=== PATIENT | female | born 2000 | race Hispanic/Latino ===

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

== ENCOUNTER 2022-04-24 21:27 | Emergency (ER) | payer SELFPAY ==
[2022-04-24 22:11] LABS: Urine Blood Trace-lysed (Negative); Urine Glucose Negative (Negative); Urine Protein Negative (Negative); Urine Specific Gravity 1.025 (1.005-1.030)
[2022-04-24 22:27] LABS: Urine Specific Gravity/Preg 1.025 (1.005-1.030)
[2022-04-24] MEDS ORDERED: KETOROLAC 30 MG/ML INJ ONE (22:38)
[2022-04-24] MEDS ORDERED: NA CHLORIDE 0.9% 1,000 ML ONE (22:38)
[2022-04-24] MEDS ORDERED: ONDANSETRON 4 MG/2 ML VIAL ONE (22:38)
[2022-04-24 22:52] LABS: Absolute Lymphocytes (CBC) 2.4 K/uL (0.7-4.9); Hematocrit 41.3 % (36.0-45.0); Lymphocytes % 22.6 % (15.3-44.8); MCV 89.4 fL (80-100); MPV 7.9 fL (7.6-11.3); RBC Red Blood Cell Count 4.62 M/uL (3.86-4.86)
[2022-04-24 22:56] LABS: Urine Bacteria <20 /HPF (<20); Urine Mucus 4+ /HPF (None Seen)
[2022-04-24 23:10] LABS: Albumin 3.8 g/dL (3.4-5.0); Bilirubin Total 0.5 mg/dL (0.2-1.0); Potassium 3.4 mmol/L (3.5-5.1); Protein, Total 7.6 g/dL (6.4-8.2)
[2022-04-24] MEDS ORDERED: CEFTRIAXONE 1000 MG/VIAL ONE (23:18)
[2022-04-25] MEDS ORDERED: DIPHENHYDRAMINE 50 MG/ML VIAL ONE (01:01)
--- NOTE | 2022-04-25 01:25 | ER ---
Nurse's Notes [facility] Name: Joann Ellis Age: 22 yrs Sex: Female : 2000 Arrival Date: 04/24/2022 Time: 21:31 Bed 6 Private MD: Diagnosis: UTI/ Urinary tract infection, site not specified;Allergic reaction;Lower abdominal pain Presentation: 04/24 21:37 Chief complaint: Patient states: I have been having lower ABD pain and lower back pain aa9 throughout the day, I felt nausea too. Coronavirus screen: Vaccine status: Patient reports being unvaccinated. Ebola Screen: No symptoms or risks identified at this time. Initial Sepsis Screen: Does the patient meet any 2 criteria? No. Patient's initial sepsis screen is negative. Does the patient have a suspected source of infection? No. Patient's initial sepsis screen is negative. Risk Assessment: Do you want to hurt yourself or someone else? Patient reports no desire to harm self or others. Onset of symptoms was April 24, 2022. 21:37 Method Of Arrival: Ambulatory aa9 21:37 Acuity: POLINA 3 aa9 Triage Assessment: 21:41 General: Appears comfortable, Behavior is calm, cooperative, appropriate for age. Pain: aa9 Complains of pain in right lower quadrant and left lower quadrant Pain radiates to left low back and right low back Pain currently is 9 out of 10 on a pain scale. EENT: No signs and/or symptoms were reported regarding the EENT system. Neuro: Level of Consciousness is awake, alert, obeys commands, Oriented to person, place, time, situation. Cardiovascular: Respiratory: Airway is patent Respiratory effort is even, unlabored. GI: Reports diarrhea, nausea, Patient currently denies vomiting. : No signs and/or symptoms were reported regarding the genitourinary system. Denies burning with urination. Derm: Skin is intact, is healthy with good turgor. Musculoskeletal: No signs and/or symptoms reported regarding the musculoskeletal system. 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 - Social history:: Smoking status: Patient reports the use of cigarette tobacco products. Screenin:43 Abuse screen: Denies threats or abuse. Denies injuries from another. Nutritional aa9 screening: Has had N/V for 3 or more days. Tuberculosis screening: No symptoms or risk factors identified. 22:12 [facility] ED Fall Risk Assessment (Adult) Score/Fall Risk Level 0 - 2 = Low Risk. as6 Assessment: 22:11 General: Appears in no apparent distress. Behavior is calm, cooperative. Pain: as6 Complains of pain in left lower quadrant and right lower quadrant Pain radiates to right low back and left low back. Neuro: Level of Consciousness is awake, alert, obeys commands, Oriented to person, place, time, situation. Cardiovascular: Capillary refill < 3 seconds Patient's skin is warm and dry. Respiratory: Respiratory effort is even, unlabored, Respiratory pattern is regular, symmetrical. GI: Reports lower abdominal pain, nausea. 23:41 Reassessment: Patient appears in no apparent distress at this time. Patient and/or as6 family updated on plan of care and expected duration. Pain level reassessed. Patient is alert, oriented x 3, equal unlabored respirations, skin warm/dry/pink. Patient states symptoms have improved. 04/25 01:03 Reassessment: Patient is alert, oriented x 3, equal unlabored respirations, skin bb warm/dry/pink. pt reports she is having an allergic reaction her lips are numb her eye is swollen and she has a rash Dr Kerr notified new orders received pt medicated see JUN. Vital Signs: 04/24 21:37 BP 146 / 98; Pulse 99; Resp 21 S; Temp 98.8; Pulse Ox 97% on R/A; Weight 77.11 kg (R); aa9 Height 5 ft. 3 in. (160.02 cm) (R); Pain 9/10; 22:50 BP 126 / 80; Pulse 95; Resp 18 S; Pulse Ox 99% on R/A; as6 23:41 BP 117 / 70; Pulse 85; Resp 16 S; Pulse Ox 100% on R/A; as6 04/25 01:22 BP 132 / 85; Pulse 88; Resp 17 S; Pulse Ox 99% on R/A; as6 04/24 21:37 Body Mass Index 30.11 (77.11 kg, 160.02 cm) aa9 ED Course: 04/24 21:31 Patient arrived in ED. ja2 21:33 Gemini Kerr MD is Attending Physician. sd2 21:39 Triage completed. aa9 21:43 Arm band placed on. aa9 21:44 Renard Kinsey, JUAN F is Primary Nurse. as6 22:12 Placed in gown. Bed in low position. Call light in reach. Side rails up X 1. as6 22:40 Inserted saline lock: 20 gauge in right antecubital area, using aseptic technique. as6 Blood collected. 22:49 Urine Microscopic Only Sent. as6 22:49 Lipase Sent. as6 22:49 CMP Sent. as6 22:49 CBC with Diff Sent. 04/25 00:48 US Pelvis Complete In Process Unspecified. EDMS 01:33 No provider procedures requiring assistance completed. IV discontinued, intact, as6 bleeding controlled, No redness/swelling at site. Pressure dressing applied. Administered Medications: 04/24 22:40 Drug: Ketorolac 15 mg Route: IVP; Site: right antecubital; 04/25 01:34 Follow up: Response: No adverse reaction as6 04/24 22:40 Drug: Zofran (Ondansetron) 4 mg Route: IVP; Site: right antecubital; as6 23:40 Follow up: Response: No adverse reaction; Marked relief of symptoms; Nausea is decreasedpf1 22:40 Drug: NS 0.9% 1000 ml Route: IV; Rate: 1 bolus; Site: right antecubital; 04/25 01:34 Follow up: Response: No adverse reaction; IV Status: Completed infusion; IV Intake: as6 1000ml 04/24 23:18 Drug: Rocephin (cefTRIAXone) 1 grams Route: IV; Rate: bolus; Site: right antecubital; 04/25 01:33 Follow up: Response: Adverse reaction, Physician notified; IV Status: Completed as6 infusion; IV Intake: 10ml 01:02 Drug: Benadryl (diphenhydrAMINE) 25 mg Route: IVP; Site: right antecubital; bb 01:29 Follow up: Response: No adverse reaction; Marked relief of symptoms pf1 01:28 Drug: predniSONE 60 mg Route: PO; pf1 01:33 Follow up: Response: No adverse reaction as6 Medication: 04/24 23:40 VIS not applicable for this client. as6 Intake: 04/25 01:33 IV: 10ml; Total: 10ml. as6 01:34 IV: 1000ml; Total: 1010ml. as6 Outcome: 01:25 Discharge ordered by . sd2 01:34 Discharged to home ambulatory, with family. as6 01:34 Condition: stable 01:34 Discharge instructions given to patient, family, Instructed on discharge instructions, follow up and referral plans. medication usage, Demonstrated understanding of instructions, follow-up care, medications, Prescriptions given X 2. 01:35 Patient left the ED. as6 Signatures: Dispatcher [employer] EDMS Carole Clark, RN RN Gabriella Rousseau Ashby, RN RN as6 Gemini Kerr MD MD sd2 Avalos, Aylin, RN RN kevin9 Khushi cullen RN RN pf1 Corrections: (The following items were deleted from the chart) 04/24 21:41 21:39 Home Meds: zytec; aaSravanthi aa9
--- NOTE | 2022-04-25 01:25 | EDPHYS ---
Physician Documentation [facility] Name: Joann Ellis Age: 22 yrs Sex: Female : 2000 Arrival Date: 04/24/2022 Time: 21:31 Bed 6 Private MD: ED Physician Gemini Kerr HPI: 04/24 22:30 This 22 yrs old Female presents to ER via Ambulatory with complaints of Flank sd2 Pain, Abdominal Pain, Back Pain, Nausea, Diarrhea. 22:30 22-year-old female presents with chief complaint of lower abdominal pain that has been sd2 present throughout the day today. She also endorses associated nausea and one episode of diarrhea. She denies any new food exposures or recent sick contacts. She denies any associated fever, vomiting or urinary symptoms. Last menstrual period was 2 weeks ago. She did take Tylenol at home with no relief.. 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 - Social history:: Smoking status: Patient reports the use of cigarette tobacco products. ROS: 22:30 Constitutional: Negative for fever, chills, and weight loss, Eyes: Negative for injury, sd2 pain, redness, and discharge, Cardiovascular: Negative for chest pain, palpitations, and edema, Respiratory: Negative for shortness of breath, cough, wheezing. 22:30 : Negative for dysuria, urinary frequency, hesitancy, urgency and hematuria. MS/Extremity: Negative for injury and deformity, Skin: Negative for injury, rash, and discoloration, Neuro: Negative for headache, numbness and tingling. 22:30 Abdomen/GI: Positive for abdominal pain, nausea, diarrhea, Negative for vomiting. Exam: 22:30 Constitutional: This is a well developed, well nourished patient who is awake, alert, sd2 and in no acute distress. Head/Face: Normocephalic, atraumatic. Eyes: EOMI, normal conjunctiva bilaterally Chest/axilla: Normal chest wall appearance and motion. Nontender with no deformity. Cardiovascular: Regular rate and rhythm with a normal S1 and S2. No gallops, murmurs, or rubs. 2+ distal pulses. Respiratory: Lungs have equal breath sounds bilaterally, clear to auscultation and percussion. No rales, rhonchi or wheezes noted. No increased work of breathing, no retractions or nasal flaring. Abdomen/GI: Soft, ND, lower abdominal TTP without rebound or guarding Skin: Warm, dry with normal turgor. Normal color with no rashes, no lesions, and no evidence of cellulitis. MS/ Extremity: Pulses equal, no cyanosis. Neurovascular intact. Full, normal range of motion. Ambulatory without difficulty. Psych: Awake, alert, with orientation to person, place and time. Behavior, mood, and affect are within normal limits. Vital Signs: 21:37 BP 146 / 98; Pulse 99; Resp 21 S; Temp 98.8; Pulse Ox 97% on R/A; Weight 77.11 kg (R); aa9 Height 5 ft. 3 in. (160.02 cm) (R); Pain 9/10; 22:50 BP 126 / 80; Pulse 95; Resp 18 S; Pulse Ox 99% on R/A; as6 23:41 BP 117 / 70; Pulse 85; Resp 16 S; Pulse Ox 100% on R/A; as6 04/25 01:22 BP 132 / 85; Pulse 88; Resp 17 S; Pulse Ox 99% on R/A; as6 04/24 21:37 Body Mass Index 30.11 (77.11 kg, 160.02 cm) aa9 MDM: 04/24 22:00 Patient medically screened. sd2 22:30 Differential diagnosis: Gastritis, cholecystitis, pancreatitis, SBO, diverticulitis, sd2 kidney stone, appendicitis, UTI, dehydration, electrolyte abnormality among others. Data reviewed: vital signs, nurses notes. 04/25 01:22 Data reviewed: lab test result(s), radiologic studies. Counseling: I had a detailed sd2 discussion with the patient and/or guardian regarding: the historical points, exam findings, and any diagnostic results supporting the discharge/admit diagnosis, lab results, radiology results, the need for outpatient follow up, to return to the emergency department if symptoms worsen or persist or if there are any questions or concerns that arise at home. ED course: Labs and imaging reviewed. Consistent with UTI. US pelvis with no acute abnormalities and pain improved with Toradol. Suspect cystitis. No flank pain at this time. Pt given Rocephin ER but began to have an allergic reaction and was stopped and given Benadryl and Prednisone with improvement. Will place on Macrobid outpatient for treatment. Pt comfortable with plan for discharge and outpatient follow up. Verbalizes understanding of strict return precautions. . 04/24 22:11 Order name: Urine Dipstick-Ancillary; Complete Time: 22:12 EDMS 04/24 22:14 Order name: Urine --Ancillary (enter results); Complete Time: 22:28 wm 04/24 22:29 Order name: CBC with Diff; Complete Time: 23:07 sd2 04/24 22:29 Order name: CMP 2 04/24 22:29 Order name: Lipase sd2 04/24 22:29 Order name: Urine Microscopic Only; Complete Time: 23:07 sd2 04/24 22:29 Order name: US Pelvis Complete 04/24 23:04 Order name: Urine Culture EDMS Administered Medications: 04/24 22:40 Drug: Ketorolac 15 mg Route: IVP; Site: right antecubital; 04/25 01:34 Follow up: Response: No adverse reaction 04/24 22:40 Drug: Zofran (Ondansetron) 4 mg Route: IVP; Site: right antecubital; as6 23:40 Follow up: Response: No adverse reaction; Marked relief of symptoms; Nausea is decreasedpf1 22:40 Drug: NS 0.9% 1000 ml Route: IV; Rate: 1 bolus; Site: right antecubital; 04/25 01:34 Follow up: Response: No adverse reaction; IV Status: Completed infusion; IV Intake: as6 1000ml 04/24 23:18 Drug: Rocephin (cefTRIAXone) 1 grams Route: IV; Rate: bolus; Site: right antecubital; 04/25 01:33 Follow up: Response: Adverse reaction, Physician notified; IV Status: Completed as6 infusion; IV Intake: 10ml 01:02 Drug: Benadryl (diphenhydrAMINE) 25 mg Route: IVP; Site: right antecubital; bb 01:29 Follow up: Response: No adverse reaction; Marked relief of symptoms pf1 01:28 Drug: predniSONE 60 mg Route: PO; pf1 01:33 Follow up: Response: No adverse reaction as6 Disposition Summary: 04/25/22 01:25 Discharge Ordered Location: Home sd2 Problem: new sd2 Symptoms: have improved sd2 Condition: Stable sd2 Diagnosis - UTI/ Urinary tract infection, site not specified sd2 - Allergic reaction sd2 - Lower abdominal pain sd2 Followup: sd2 - With: Private Physician - When: 2 - 3 days - Reason: Recheck today's complaints, Continuance of care, Re-evaluation by your physician Discharge Instructions: - Discharge Summary Sheet sd2 - Drug Allergy sd2 - Urinary Tract Infection, Adult sd2 Forms: - Medication Reconciliation Form sd2 - Thank You Letter sd2 - Antibiotic Education sd2 - Prescription Opioid Use sd2 Prescriptions: - Macrobid 100 mg Oral Capsule - take 1 capsule by ORAL route every 12 hours for 10 days; 20 capsule; Refills: sd2 0, Product Selection Permitted - Prednisone 20 mg Oral Tablet - take 2 tablets by ORAL route once daily for 5 days; 10 tablet; Refills: 0, sd2 Product Selection Permitted Signatures: Dispatcher [employer] Carole Yoder RN RN bb Renard Kinsey RN RN as6 Dunlop, Stephanie, MD MD sd2 Denise Watson RN RN aa9 Khushi cullen RN RN pf1 Corrections: (The following items were deleted from the chart) 04/24 21:41 21:39 Home Meds: lyssa; jerrod aa9
[2022-04-25] MEDS ORDERED: predniSONE 20 MG TAB ONE (01:29)
[2022-04-25 02:29] VITALS: TEMP 98.8
[2022-04-25 02:45] VITALS: BP 132/85; O2SAT 99
--- NOTE | 2022-04-25 19:53 | RAD REPORT ---
EXAM DESCRIPTION: Pelvis Complete 04/25/2022 12:57 AM WEB EDITOR CLINICAL HISTORY: 22 years, Female, ABD PAIN COMPARISON: None. TECHNIQUE: Utilizing a curved array transducer, real-time ultrasound evaluation of the female pelvis was performed. Color Doppler imaging was used to assess vascular flow. Patient refused transvaginal ultrasound. FINDINGS: The uterus measures 6 x 2.2 x 4.6 cm. The endometrial stripe demonstrate to be normal an d measure 2.2 mm, no focal masses and/or gestational sac is identified. The right ovary measured 2.3 x 1.7 x 1.8 cm, the left ovary measures 2.5 x 1.6 x 2 cm. There is karl l vascular flow and spectral waveforms with no evidence for torsion. No free fluid was identified in the posterior cul-de-sac, no adnexal masses seen. The urinary bladder demonstrate a volume of 71.64 mL. Ureteral Jets were seen. IMPRESSION: Unremarkable pelvic ultrasound. Electronically signed by: Deep Hawk MD 04/25/2022 1:00 AM WEB EDITOR Due to temporary technical issues with the PACS/Fluency reporting system, reports are being signed by the in house radiologists without review as a courtesy to insure prompt reporting. The interpreting radiologist is fully responsible for the content of the report.
== END 2022-04-25 01:35 | disposition home or self-care (01) ==
LOC: ER 21:27
DX: N39.0 Urinary tract infection, site not specified (principal); Z72.0 Tobacco use
CPT/HCPCS: 36415; 76856; 80053; 81003; 81015; 81025; 83690; 85025; 87086; 87088; 96361; 96365; 96366; 96375; 99284; J1200; J2405; J7030; J7512